=== PATIENT | female | born 1930 | race Caucasian/White ===

== ENCOUNTER 2016-07-12 12:08 | Emergency (ER) | payer MEDICARE ==
[~2016-07-12] VITALS: Ht 167.6 cm; Wt 73.4 kg
[~2016-07-12 12:08] MED LIST: ALLO100T30 PO; ALLO300T PO; FURO-92 PO; FURO-93 PO; GABA300C10 PO; HYDR-3138 PO; POTA10TA11 PO; ROPI4TAB3 PO; SULF1TAB24 PO
[2016-07-12] MEDS ORDERED: SODIUM CHLORIDE 0.9% 1,000 ML IV ONE (12:44)
[2016-07-12] MEDS ORDERED: SODIUM CHLORIDE 0.9% 1,000ML IVBOLUS ONE (13:00)
[2016-07-12 13:44] LABS: BLOOD UREA NITROGEN 12 mg/dL (7-18)
[2016-07-12] MEDS ORDERED: CLINDAMYCIN 300 MG CAPSULE PO ONE (16:30)
[2016-07-12 17:04] VITALS: BP 155/90
== END 2016-07-12 17:21 | disposition home or self-care (01) ==
LOC: ED 17:19
DX: L03.115 Cellulitis of right lower limb (principal); M79.661 Pain in right lower leg; E11.9 Type 2 diabetes mellitus without complications; I50.9 Heart failure, unspecified; M19.90 Unspecified osteoarthritis, unspecified site
CPT/HCPCS: 36415; 80048; 82040; 83605; 84145; 85025; 87040; 99285

== ENCOUNTER 2016-07-14 09:01 | Emergency (ER) | payer MEDICARE ==
[~2016-07-14] VITALS: Ht 167.6 cm; Wt 72.7 kg
[2016-07-14 09:02] VITALS: BP 177/79
== END 2016-07-14 10:08 | disposition home or self-care (01) ==
LOC: ED 09:34
DX: L03.115 Cellulitis of right lower limb (principal)
CPT/HCPCS: 99281